=== PATIENT | female | born 1995 | race Caucasian/White ===

== ENCOUNTER → 2017-11-08 08:53 | Outpatient (CLI) | payer BC, SELFPAY ==
[2017-11-08 10:06] LABS: Internal QC Validated? YES +Cl - CLEAR BKGD
[2017-11-08 10:09] LABS: Pregnancy, Urine Negative Negative
== END ==
PROVIDERS: Family Provider Internal Medicine Adolescent Medicine; PCP Internal Medicine Adolescent Medicine; Visit Provider Physician Assistant
DX: L70.0 Acne vulgaris (principal); Z79.899 Other long term (current) drug therapy
CPT/HCPCS: 81025

== ENCOUNTER → 2017-12-23 08:14 | Outpatient (CLI) | payer BC, SELFPAY ==
[2017-12-23 10:12] LABS: Internal QC Validated? YES +Cl - CLEAR BKGD; Pregnancy, Urine Negative Negative
== END ==
PROVIDERS: Family Provider Internal Medicine Adolescent Medicine; PCP Internal Medicine Adolescent Medicine; Referring Provider Dermatology Pediatric Dermatology; Visit Provider Dermatology Pediatric Dermatology
DX: L70.0 Acne vulgaris (principal)
CPT/HCPCS: 81025

== ENCOUNTER → 2018-01-24 08:13 | Outpatient (CLI) | payer BC, SELFPAY ==
[2018-01-24 10:03] LABS: Internal QC Validated? YES +Cl - CLEAR BKGD; Pregnancy, Urine Negative Negative
[2018-01-24 10:14] LABS: Basophil# 0.01 X10^3/uL; Basophil% 0.2 % (0-1); Eosinophil# 0.12 X10^3/uL; Eosinophils% 2.8 % (0-5); Hemoglobin 13.8 g/dl (12.0-15.0); Lymphocyte % 37.7 % (19-41); Mean Corp Hgb Conc 32.9 g/gl (32-36); Mean Corpuscular Volume 91.3 fL (81-99); Mean Platelet Vol. 11.3 fl (6.2-12.0); Monocyte# 0.46 X10^3/uL; Monocyte% 10.8 % (0-10); Neutrophil # 2.04 X10^3/uL (2.7-7.7); Neutrophil % 48.3 % (47-70); Platelet Count 205 K/mm3 (150-450); RBC Distribution Width CV 12.5 % (11.6-14.6); RBC Distribution Width SD 40.9 fl (35.1-43.9); White Blood Count 4.2 K/mm3 (4.4-11.0)
[2018-01-24 10:15] LABS: POSITIVE COUNT NO; POSITIVE DIFFERENTIAL NO; POSITIVE MORPHOLOGY NO
[2018-01-24 11:00] LABS: ALB/GLOB Ratio 1.1 RATIO (0.9-2.4); AST(SGOT) 20 U/L (15-37); Alanine Aminotransfer ALT/SGPT 23 U/L (13-56); Albumin, Serum 3.9 g/dL (3.2-5.0); Alkaline Phosphatase 71 U/L (45-117); Anion Gap 6 (5-15); BUN 12 mg/dL (7-18); BUN/Creat Ratio 11.5 RATIO (10-20); Calcium,Total 9.2 mg/dL (8.5-10.1); Chloride 106 mmol/L (98-107); Cholesterol 207 mg/dL (200); Creatinine, Serum 1.04 mg/dL (0.55-1.02); EST Glomerular Filtration Rate 71 mL/min (>60); Est Glom Filt Rate - Afr Amer 86 mL/min (>60); Globulin 3.7 g/dL (2.2-4.2); Glucose 88 mg/dL (74-106); High Density Lipoprotein 49 mg/dL; Potassium 4.3 mmol/L (3.5-5.1); Protein, Total 7.6 g/dL (6.4-8.2); Sodium Level 138 mmol/L (136-145); Triglycerides 130 mg/dL; Very Low Density Lipoprotein 26 mg/dL (5-40)
--- OUTSIDE RECORDS SUMMARY | 2018-03-19 08:11 | XMS RPT_ITS ---
:1995 Author Organization OH[facility] Care Team Providers Name Role Phone Kiera Hughes PA-C Attending Unavailable Kiera Hughes PA-C Referring Unavailable Georgiana, Ciara Primary Care Unavailable Skylar Kraft Attending Unavailable Skylar Kraft Referring Unavailable Charlesis, Ciara Primary Care Unavailable Kiera Hughes PA-C Attending Unavailable Kiera Hughes PA-C Referring Unavailable Kendis, Ciara Primary Care Unavailable BERTIN GIPSON (FEL) Referring Unavailable LUANN ESCALANTE Attending Unavailable Balaji Joshi Attending Unavailable Skylar Kraft Attending Unavailable PROBLEMS PROBLEMS DATE TYPE CONDITION / ATTENDING STATUS SOURCE CODE 12/23/2017 Unknown L70.0 - Acne Skylar Kraft Active [facility] L70.0(ICD-10) Hospital Repository 11/08/2017 Unknown Z79.899 - Other Kiera Hughes PA-C Active [facility] (current[facility] drug Hospital therapy / Repository Z79.899(ICD-10) 05/12/2017 Admitting Unknown / Balaji Joshi Active [facility] Medical diagnosis UNK(Unknown) [facility] Repository 11/23/2014 Active Low back pain / NA Active [facility] M54.5(ICD-10) [facility] [place] Repository PROCEDURES PROCEDURES No Procedure Records FoundRESULTS RESULTS ,URINE Collected: 01/24/2018 Status: F Source: [place] [facility] TYPE CODE TESTS RESULT OUT OF REFERENCE UNITS RANGE LAB L400.8000 Negative Normal HCGUQUAL Negative Result Comment: Very dilute urine specimens, as indicated by a low specific gravity, may not contain apprenticeship training representative levels of hCG. If is still suspected, a first morning urine specimen should be collected 48 hours later and tested. Performed By: #### L400.7600 #### [facility] [address] [place], [address] CBC W/DIFF, AUTOMATED Collected: 01/24/2018 Status: F Source: [place] 8:[facility] AM [facility] TYPE CODE TESTS RESULT OUT OF RANGE REFERENCE UNITS LAB L100.1000 4.4-11.0 K/mm3 Low WBC 4.2 LAB L100.1200 4.2-5.4 M/mm3 Normal RBC 4.60 LAB L100.1300 12.0-15.0 g/dl Normal HGB 13.8 LAB L100.1400 37-47 % Normal HCT 42.0 LAB L100.1500 81-99 fL Normal MCV 91.3 LAB L100.1600 27.0-32.0 pg Normal MCH 30.0 LAB L100.1700 32-36 g/gl Normal MCHC 32.9 LAB L100.1810 11.6-14.6 % Normal RDW CV 12.5 LAB L100.1820 35.1-43.9 fl Normal RDW SD 40.9 LAB L100.1900 150-450 K/mm3 Normal PLT 205 LAB L100.2000 6.2-12.0 fl Normal MPV 11.3 LAB L100.2100 47-70 % Normal NEUT% 48.3 LAB L100.2200 19-41 % Normal LY% 37.7 LAB L100.2300 0-10 % High MONO% 10.8 LAB L100.2400 0-5 % Normal EO% 2.8 LAB L100.2500 0-1 % Normal BASO% 0.2 LAB L100.2550 0.0-0.9 % Normal IM GRAN % 0.200 Result Comment: IG% - Immature Granulocytes (promyelocytes, myelocytes and metamyelocytes) > 1% indicates that a LEFT SHIFT is Present. LAB L100.2620 2.0-7.7 X10 3/uL Normal Absolute Neut 2.0 LAB L100.2720 0.83-4.51 X10 3/ul Normal Absolute Lymph 1.60 Performed By: #### L100.0100 #### [facility] [address] [place], [address] COMPREHENSIVE METABOLIC Collected: 01/24/2018 Status: F Source: [facility] 8:25 AM [facility] [place] TYPE CODE TESTS RESULT OUT OF RANGE REFERENCE UNITS LAB L501.0100 74-106 mg/dL Normal GLU 88 Result Comment: Please note revised GLUCOSE reference range effective 2017. LAB L501.1000 7-18 mg/dL Normal BUN 12 LAB L501.1100 0.55-1.02 mg/dL High CREAT,SERUM 1.04 Result Comment: The validity of the calculated GFR AND GFRAA in patients over 70 years has not been determined. Clinical correlation is essential. LAB L501.1110 >60 mL/min Normal EST GFR 71 Result Comment: Non- GFR Calc LAB L501.1115 >60 mL/min Normal EST GFR - AA 86 Result Comment: GFR Calc LAB L501.1300 10-20 RATIO Normal BUN/CRE 11.5 LAB L501.1500 6.4-8.2 g/dL T Normal PROT 7.6 LAB L501.1800 3.2-5.0 g/dL Normal ALB 3.9 LAB L501.1950 2.2-4.2 g/dL Normal GLOB 3.7 LAB L501.2000 0.9-2.4 RATIO Normal A/G 1.1 LAB L501.2200 8.5-10.1 mg/dL CA Normal 9.2 LAB L501.4100 15-37 U/L Normal AST 20 LAB L501.4305 45-117 U/L Normal ALK P 71 LAB L501.4405 13-56 U/L Normal ALT 23 LAB L501.4600 0.20-1.00 mg/dL T Normal BILI 0.60 LAB L501.5300 136-145 mmol/L NA Normal 138 LAB L501.5600 3.5-5.1 mmol/L K Normal 4.3 LAB L501.5900 98-107 mmol/L CL Normal 106 LAB L501.6100 21.0-32.0 mmol/L Normal CO2 26.0 LAB L501.6200 5-15 Normal GAP 6 Performed By: #### L500.4050, L500.4100 #### [facility] [address] [place], [place], [address] LIPID PROFILE Collected: 01/24/2018 Status: F Source: [place] 8:25 AM [facility] TYPE CODE TESTS RESULT OUT OF RANGE REFERENCE UNITS LAB L501.4900 200 mg/dL High CHOL 207 Result Comment: <200 mg/dL Desirable 200-240 mg/dL Borderline >240 mg/dL High Risk LAB L501.5000 mg/dL Normal TRIG 130 Result Comment: The drugs N-Acetylcysteine and Metamizole may falsely depress this assay. Serum Triglycerides Reference Interval Normal <150 mg/dL Borderline high 150 - 199 mg/dL High 200 - 499 mg/dL Very High > or = 500 mg/dL LAB L501.6400 mg/dL Normal HDL 49 Result Comment: The drugs N-Acetylcysteine and Metamizole may falsely depress this assay. Reference Range HDL <40 mg/dL Low HDL Cholesterol HDL >or= 60 mg/dL High HDL Cholesterol LAB L501.6500 0-130 mg/dL High LDL 132 LAB L501.6600 5-40 mg/dL Normal VLDL 26 Performed By: #### L500.4050, L500.4100 #### [facility] [address] [place], [place], [id number] ,URINE Collected: 12/23/2017 Status: F Source: [place] 8:21 AM [facility] TYPE CODE TESTS RESULT OUT OF REFERENCE UNITS RANGE LAB L400.8000 Negative Normal HCGUQUAL Negative Result Comment: Very dilute urine specimens, as indicated by a low specific gravity, may not contain apprenticeship training representative levels of hCG. If is still suspected, a first morning urine specimen should be collected 48 hours later and tested. Performed By: #### L400.7600 #### [facility] [address] [place], [place], [id number] ,URINE Collected: 11/08/2017 Status: F Source: [place] 9:05 AM [facility] TYPE CODE TESTS RESULT OUT OF REFERENCE UNITS RANGE LAB L400.8000 Negative Normal HCGUQUAL Negative Result Comment: Very dilute urine specimens, as indicated by a low specific gravity, may not contain apprenticeship training representative levels of hCG. If is still suspected, a first morning urine specimen should be collected 48 hours later and tested. Performed By: #### L400.7600 #### [facility] [address] [place], [address] URINE Collected: 10/02/2017 Status: F Source: [facility] 2:23 PM [facility] REPOSITORY TYPE CODE TESTS RESULT OUT OF RANGE REFERENCE UNITS LAB L600.86842 NEGATIVE Normal UR NEGATIVE HCG QUAL LAB L600.76098 1.005-1.030 Normal UR 1.025 SPEC GRAV Performed By: #### L600.45734 #### [facility] [address], [place] [address] PH# [phone] CBC W/DIFF Collected: 05/12/2017 Status: F Source: [facility] 8:00 AM [facility] REPOSITORY TYPE CODE TESTS RESULT OUT OF REFERENCE UNITS RANGE LAB L200.12201 4.5-11.0 K/CU MM WBC Normal 6.1 LAB L200.25360 3.90-5.30 M/CU MM RBC Normal 4.18 LAB L200.80191 11.5-15.5 G/DL HGB Normal 12.2 LAB L200.54337 35.0-47.0 % HCT Normal 38.9 LAB L200.68366 80.0-99.0 fl MCV Normal 93.1 LAB L200.37947 32.0-36.0 GM/DL Low MCHC 31.4 LAB L200.35314 11-14.5 RDW Normal 12.4 LAB L200.92356 9.4-12.4 MPV Normal 11.7 LAB L200.29205 150-450 K/CU MM PLT Normal 173 LAB L200.95630 45-75 % NEUTROPHILS Normal % 72.0 LAB L200.52094 0-7 % BAND % Normal 2.0 LAB L200.37858 20-40 % Low LYMPH % 14.0 LAB L200.46111 2-10 % MONOCYTE % Normal 9.0 LAB L200.67543 0-5 % EOSINOPHIL Normal % 2.0 LAB L200.03145 0-2 % BASOPHIL % Normal 1.0 LAB L200.95419 2.0-8.3 K/CU MM NEUTROPHIL Normal ABS 4.39 LAB L200.00050 K/CU MM BAND ABS Normal 0.12 LAB L200.89202 0.9-4.4 K/CU MM Low LYMPH ABS 0.85 LAB L200.12678 0.1-1.1 K/CU MM MONO ABS Normal 0.55 LAB L200.21884 0-0.5 K/CU MM EOS ABS Normal 0.12 LAB L200.74974 0-0.2 K/CU MM BASO ABS Normal 0.06 LAB L200.29606 Less than 1 % NRBC Normal 0.0 LAB L200.93803 HYPO Normal 1+ LAB L200.46252 POIK Normal 1+ LAB L200.35247 PLT EST Normal ADEQUATE Performed By: #### L200.34368, L200.16001 #### [facility] [address] [place] [address] WSR/MOD Collected: 05/12/2017 Status: F Source: [facility] 8:00 AM [facility] REPOSITORY TYPE CODE TESTS RESULT OUT OF RANGE REFERENCE UNITS LAB L200.67728 0-20 MM/HR Normal WSR/MOD 13 Performed By: #### L200.85147, L200.99119 #### [facility] [address] [place] [address] CMP Collected: 05/12/2017 Status: F Source: [facility] 8:00 AM [facility] REPOSITORY TYPE CODE TESTS RESULT OUT OF RANGE REFERENCE UNITS LAB L500.27029 136-145 MMOL/L Normal NA 142 LAB L500.01017 3.5-5.1 MMOL/L Normal K 4.2 LAB L500.81116 98-107 MMOL/L Normal CL 105 LAB L500.61202 21-32 MMOL/L Normal CO2 27 LAB L500.63640 5-16 MMOL/L Normal AGAP 10 LAB L500.91383 70-100 MG/DL Normal GLU 86 Result Comment: 70-100- Normal Fasting; 100-125 Impaired Fasting; greater than 126 on more than one result- Diabetes. ADA guidelines. Results may be falsely elevated after the administration of Sulfapyridine. Results may be falsely depressed after the administration of Sulfasalazine. LAB L500.08894 7-26 MG/DL Normal BUN 14 LAB L500.25137 0.510-0.950 MG/DL Normal CREAT 0.858 Result Comment: Patients receiving either N-Acetylcysteine (NAC) or Metamizole prior to venipuncture, may have falsely depressed results. LAB L500.70545 15-24 Normal BUN/CREA 16 LAB L500.72534 6.0-8.5 GM/DL Normal TP 6.6 LAB L500.80284 3.2-5.0 GM/DL Normal ALBUMIN 3.4 LAB L500.81917 2.2-4.2 GM/DL Normal GLOBULIN 3.2 LAB L500.62636 0.8-2.0 Normal A/G RATIO 1.1 LAB L500.72240 8.5-10.1 MG/DL Normal CALCIUM TOTAL 8.5 LAB L500.89100 0.2-1.0 MG/DL Normal BILI TOTAL 0.3 LAB L500.82876 8-34 U/L Normal SGOT (AST) 14 Result Comment: RESULTS MAY BE FALSELY DEPRESSED AFTER THE ADMINISTRATION OF SULFASALAZINE AND/OR SULFAPYRIDINE. LAB L500.96048 13-61 IU/L Normal SGPT (ALT) 17 Result Comment: RESULTS MAY BE FALSELY DEPRESSED AFTER THE ADMINISTRATION OF SULFASALAZINE AND/OR SULFAPYRIDINE. LAB L500.40759 45-117 U/L Normal ALK PHOS 60 Performed By: #### L500.51985, L500.30758, L500.94424, L500.74547, L500.17584 #### [facility] [place] [address] GFR EST Collected: 05/12/2017 Status: F Source: [facility] 8:00 AM [facility] REPOSITORY TYPE CODE TESTS RESULT OUT OF RANGE REFERENCE UNITS LAB L500.38859 ML/MIN Normal IF non-AFR Greater than AMER 60 LAB L500.23407 ML/MIN Normal IF Greater than AMER 60 Performed By: #### L500.39050, L500.52762, L500.54393, L500.93009, L500.10882 #### [facility] [place] [address] EL Collected: 05/12/2017 Status: F Source: [facility] 8:00 AM [facility] REPOSITORY TYPE CODE TESTS RESULT OUT OF RANGE REFERENCE UNITS LAB L500.56147 25-115 U/L Normal EL 50 Performed By: #### L500.66404, L500.77392, L500.57672, L500.55165, L500.21074 #### [facility] [address] [place] [address] LIPASE Collected: 05/12/2017 Status: F Source: [facility] 8:00 AM [facility] REPOSITORY TYPE CODE TESTS RESULT OUT OF RANGE REFERENCE UNITS LAB L500.61935 73-393 U/L Normal LIPASE 175 Performed By: #### L500.30249, L500.01524, L500.12008, L500.75452, L500.45801 #### [facility] [address] [place] [address] HCG Collected: 05/12/2017 Status: F Source: [facility] 8:00 AM [facility] REPOSITORY TYPE CODE TESTS RESULT OUT OF RANGE REFERENCE UNITS LAB L500.68582 NEGATIVE Normal HCG SER NEGATIVE RESULT Performed By: #### L500.08515, L500.41186, L500.55448, L500.63056, L500.62481 #### [facility] [address] [place] [address] CMV IGG AB Collected: 05/12/2017 Status: F Source: [facility] 8:00 AM [facility] REPOSITORY TYPE CODE TESTS RESULT OUT OF RANGE REFERENCE UNITS LAB L705.07880 0.00-0.59 U/mL Normal CMV IGG <0.60 AB Result Comment: Negative <0.60 Equivocal 0.60 - 0.69 Positive >0.69 Performed By: #### L705.15139, L705.53052, L750.94777, L750.27663 #### [facility] [address] [place] [address] # [phone] CMV IGM AB Collected: 05/12/2017 Status: F Source: [facility] 8:00 AM [facility] REPOSITORY TYPE CODE TESTS RESULT OUT OF RANGE REFERENCE UNITS LAB L705.35633 0.0-29.9 AU/mL Normal CMV IGM <30.0 AB Result Comment: Negative <30.0 Equivocal 30.0 - 34.9 Positive >34.9 A positive result is generally indicative of acute infection, reactivation or persistent IgM production. Performed By: #### L705.48924, L705.79770, L750.03858, L750.72396 #### [facility] [address] # [phone] EBV VCA IGM AB Collected: 05/12/2017 Status: F Source: [facility] 8:00 AM [facility] REPOSITORY TYPE CODE TESTS RESULT OUT OF RANGE REFERENCE UNITS LAB L750.39470 0.0-35.9 U/mL Normal EBV VCA <36.0 IGM AB Result Comment: Negative <36.0 Equivocal 36.0 - 43.9 Positive >43.9 Performed At: [address] [id number] Ryan Abebe PhD [id number] Performed By: #### L705.35141, L705.00700, L750.03147, L750.97126 #### [facility] [address] # [phone] EBV VCA IGG AB Collected: 05/12/2017 Status: F Source: [facility] 8:00 AM [facility] REPOSITORY TYPE CODE TESTS RESULT OUT OF RANGE REFERENCE UNITS LAB L750.91248 0.0-17.9 U/mL Normal EBV VCA < 18.0 IGG AB Result Comment: Negative <18.0 Equivocal 18.0 - 21.9 Positive >21.9 Performed By: #### L705.57771, L705.98673, L750.48781, L750.90374 #### [facility] [address] [place] [address] # [phone] PROGRESS Observed: 02/25/2017 Status: COMPLETED Source: [place] 2:51 PM [facility] REPOSITORY HNO ID: [id number] Author: Jensen Castillo (RtRosaline Reyes Service: Radiology Author Type: Energy Derivatives Trader Type: Progress Notes Filed: 02/25/2017 2:51 PM Note Text: Radiology Service Progress Note PATIENT NAME: Ewa Weller DATE OF SERVICE: February 25, 2017 TIME: 2:51 PM PATIENT IDENTITY VERIFICATION COMPLETED USING TWO (2) METHODS: Patient confirmed name verbally and Date of . PATIENT GENDER DATA: Female. status: : No status: NO. PATIENT RELEVANT IMPLANT DATA REVIEWED: Not Applicable RADIOLOGY DEPARTMENT: General X-ray: Exam(s) Completed: Spine X-Ray(s): Lumbar AP / LAT / L5-S1 / OBL PERIPHERAL IV DATA: Not applicable SIGNED BY: RT Jade February 25, 2017 2:51 PM XR LUMBAR PARS 4V Observed: 02/25/2017 Status: F Source: [place] AP/LAT/OBL X2 2:51 PM [facility] REPOSITORY * * *Final Report* * * DATE OF EXAM: Feb 25 2017 2:51PM JIX [id number] - XR LUMBAR PARS 4V AP/LAT/OBL X2 / PROCEDURE REASON: Low back pain * * * * Physician Interpretation * * * * EXAMINATION: XR LUMBAR PARS 4V AP/LAT/OBL X2 HISTORY: lower back pain. no trauma Low back pain . TECHNIQUE: XR LUMBAR PARS 4V AP/LAT/OBL X2 Laterality: NOT APPLICABLE Number of different views (projections): 5 M: XB_1 COMPARISON: 11/23/2014 RESULT: Counting reference: Lumbosacral junction. For the purposes of this report, L5-S1 is considered the last lumbar type disc space and L4-L5 is considered the level of the iliac crest. Mild retrolisthesis of L5 on S1. Minimal endplate hypertrophic changes. Normal disc and vertebral body heights. Minimal degenerative facet changes. No spondylolysis identified. Sacroiliac joints are maintained. IMPRESSION: No acute change of the lumbar spine. Spoilage Worker: COURTNEY Transcribe Date/Time: Feb 25 2017 2:52P Dictated by : FELA XIE MD This examination was interpreted and the report reviewed and electronically signed by: FELA XIE MD on Feb 25 2017 2:54PM EST [id number] HISTORY PHYSICAL Observed: 02/25/2017 Status: COMPLETED Source: [place] 1:48 PM [facility] REPOSITORY HNO ID: [id number] Author: Luann Escalante Service: (none) Author Type: Physician Type: HANDP Filed: 02/25/2017 3:14 PM Note Text: SPINE SURGERY NEW PATIENT PCP: Ciara Stoner MD REFERRING PROVIDER: Self SUBJECTIVE HISTORY OF PRESENT ILLNESS: Ewa Weller is a 21 year old female presenting with mother. CHIEF COMPLAINT: Back pain PRECIPITATING EVENT: None DURATION OF SYMPTOMS: Greater Than 6 Months 21F who presents with a chief complaint of back pain. Ashishs back pain dates back to 3 years ago when she sustained a stress fracture to L5 while playing basketball. She was treated conservatively at the time and obtained relief eventually. Since May 2016 she has begun to experience continued back pain. Initially it extended into her right leg but has since transitioned to exclusively back. Pain is worse with extension, better with flexion. She takes ibuprofen as needed for pain. She has undergone bilateral L5-S1 TFESI and two sets of bilateral SI joint injection and one unilateral right sided SI joint injection with mild pain relief. She has also completed 3 months of PT with limited benefit. She denies any weakness numbness or tingling. Denies bowel or bladder incontinence. PAIN EVALUATION 02/25/2017 Pain Score: 2 Pain Location: Back-Lower Description: Aching Duration Amount of Time: 3 Duration Units: Years Frequency: Continuous Intervention: Medication;Relaxation worst 8/10 Comments: worst 8/10 Pain Radiation: Pain does not radiate Aggravating Factors: Extension Alleviating Factors: Medications Pain Ratio: Pain is limited to her back DERMATOMAL DISTRIBUTION: Not applicable AMBULATORY STATUS: Independent Community Distances FUNCTIONAL STATUS: Participate in strenuous sport, such as swimming, singles tennis, football, basketball, or skiing (7.50 METs) PREVIOUS CONSERVATIVE TREATMENTS: OTC NSAIDS for 3 Months or Greater (Ibuprofen) Physical Therapy: Date(s) June to September 2016 Epidural Blocks: Date(s) August, October and December 2016 PREVIOUS SPINAL SURGERY: None PED RED FLAGS No No-Significant Injury to Spine No-Use of Steroids for Prolonged Duration No-Loss of Bowel/Bladder Control, Genital/Anal Numbness No-Recent Use of Intravenous (IV) Drugs No-Difficulty Keeping Balance when Walking No-Progressive Weakness in Arms/Legs No-History of Any Type of Cancer No-Unable to Find Position of Comfort No-Pain at Night that Disturbs Sleep No-Recent Elevated Temp with Unknown Cause No-Diagnosed with Osteoporosis No-Unintentional Weight Loss or Gain *PED (Patient Entered Data) osteoporosis flag will display for females 55 years or older and males 75 years or older. ACTIVE PROBLEM LIST Mechanical Low Back Pain No past medical history on file. No past surgical history on file. No family history on file. Social History Marital status: Single Spouse name: Years of education: Number of children: Social History Main Topics Smoking status: Never Smoker Smokeless status: Never Used Alcohol use: No ALLERGIES No Known Allergies MEDICATIONS: IBUPROFEN ORAL Take by mouth. REVIEW OF SYSTEMS: PAIN ASSESSMENT: See HPI. GENERAL: Denies fever, chills malaise and weight loss. HEENT: No recent change in vision or hearing. CARDIOVASCULAR: Denies chest pain, history of A-fib, valvular disease, or pacemaker/ICD. RESPIRATORY: Denies SOB, sputum production, and hemoptysis. GI: Denies GI ulcers, inflammatory disease, or liver disease. : Denies change in frequency or urgency, kidney disease, and burning with urination. MUSCULOSKELETAL: Negative for joint pain or swelling, back pain or muscle pain. SKIN: Denies rash or itching. PSYCHOLOGICAL: Denies uncontrolled depression or anxiety. NEURO: Denies CVA, seizures, headaches. ENDOCRINE: Denies diabetes, thyroid disease. HEMATOLOGY/LYMPHOLOGY: Denies cancer, bleeding or clotting disorders, anemia,and DVT's. ALLERGIC/IMMUNOLOGICAL: Denies risks for infection, or recent MRSA infections. OBJECTIVE: PHYSICAL EXAM BP 119/55 Pulse 60 Resp 18 Ht 165.1 cm (5' 5) Wt 63.5 kg (140 lb) BMI 23.3 kg/m2 GENERAL APPEARANCE: Well nourished, well developed, and no apparent distress. NEURO PSYCH: Patient oriented to person, place, and time. Mood pleasant. Benign affect. CARDIOVASCULAR: Palpable pulses. No edema noted. No varicosities. SKIN: Head, neck, trunk, and extremities dry, intact and without lesions. LYMPHATICS: No palpable nodes in cervical or axillae areas. Groin exam deferred. MUSCULOSKELETAL VISUAL INSPECTION CERVICAL: WNL THORACIC: WNL LUMBAR: WNL PALPATION: SPINOUS PROCESS: No pain. PARASPINALS: Pain with deep palpation in low lumbar paraspinal area MUSCLE BULK: Normal and symmetrical in the upper AND lower extremities. MUSCLE TONE: Normal. MOTOR: 5/5 in all muscle groups. SENSORY: Normal sensory exam GAIT: Normal. REFLEXES: +2 to bilateral U/L extremities. PROPRIOCEPTION: Normal. LONG TRACT SIGNS: No clonus. No Hoffmans. STRAIGHT LEG TEST: Ipsilateral: Negative. Contralateral: Negative. L'HERMITTES SIGN: Negative on the right. Negative on the left. SPURLING'S TEST: Negative on the right. Negative on the left. NEURO TESTS: None DATA REVIEW Imaging and outside records reviewed ASSESSMENT/PLAN Back pain; suspect L5-S1 facet arthropathy; less likely to be pars ? Referral to pain clinic for facet blocks at L5-S1 bilaterally ? Continue PT ? Standing AP, lateral oblique lumbar xrays to evaluate for pars defects Dayanara Gipson MD. Spine Fellow Luann Escalante MD. Staff Surgeon CNOV Observed: 02/25/2017 Status: COMPLETED Source: [place] 1:00 PM [facility] REPOSITORY Office Visit (SPNSMN) EWA WELLER ([id number]) 1995 F Date Time Provider Department 02/25/17 1:00 PM LUANN ESCALANTE SPNSMN During your visit today, we recorded the following information about you: Pulse Respiration Blood pressure Weight 60/minute 18/minute 119/55 63.5 kg Height 1.651 m Luann Escalante MD 02/25/2017 3:14 PM Signed SPINE SURGERY NEW PATIENT PCP: Ciara Stoner MD REFERRING PROVIDER: Self SUBJECTIVE HISTORY OF PRESENT ILLNESS: Ewa Weller is a 21 year old female presenting with mother. CHIEF COMPLAINT: Back pain PRECIPITATING EVENT: None DURATION OF SYMPTOMS: Greater Than 6 Months 21F who presents with a chief complaint of back pain. Ewa's back pain dates back to 3 years ago when she sustained a ANDquot;stress fractureANDquot; to L5 while playing basketball. She was treated conservatively at the time and obtained relief eventually. Since May 2016 she has begun to experience continued back pain. Initially it extended into her right leg but has since transitioned to exclusively back. Pain is worse with extension, better with flexion. She takes ibuprofen as needed for pain. She has undergone bilateral L5-S1 TFESI and two sets of bilateral SI joint injection and one unilateral right sided SI joint injection with mild pain relief. She has also completed 3 months of PT with limited benefit. She denies any weakness numbness or tingling. Denies bowel or bladder incontinence. PAIN EVALUATION 02/25/2017 Pain Score: 2 Pain Location: Back-Lower Description: Aching Duration Amount of Time: 3 Duration Units: Years Frequency: Continuous Intervention: Medication;Relaxation worst 8/10 Comments: worst 8/10 Pain Radiation: Pain does not radiate Aggravating Factors: Extension Alleviating Factors: Medications Pain Ratio: Pain is limited to her back DERMATOMAL DISTRIBUTION: Not applicable AMBULATORY STATUS: Independent Community Distances FUNCTIONAL STATUS: Participate in strenuous sport, such as swimming, singles tennis, football, basketball, or skiing (7.50 METs) PREVIOUS CONSERVATIVE TREATMENTS: OTC NSAIDS for 3 Months or Greater (Ibuprofen) Physical Therapy: Date(s) June to September 2016 Epidural Blocks: Date(s) August, October and December 2016 PREVIOUS SPINAL SURGERY: None PED RED FLAGS No No-Significant Injury to Spine No-Use of Steroids for Prolonged Duration No-Loss of Bowel/Bladder Control, Genital/Anal Numbness No-Recent Use of Intravenous (IV) Drugs No-Difficulty Keeping Balance when Walking No-Progressive Weakness in Arms/Legs No-History of Any Type of Cancer No-Unable to Find Position of Comfort No-Pain at Night that Disturbs Sleep No-Recent Elevated Temp with Unknown Cause No-Diagnosed with Osteoporosis No-Unintentional Weight Loss or Gain *PED (Patient Entered Data) osteoporosis flag will display for females 55 years or older and males 75 years or older. ACTIVE PROBLEM LIST Mechanical Low Back Pain No past medical history on file. No past surgical history on file. No family history on file. Social History Marital status: Single Spouse name: Years of education: Number of children: Social History Main Topics Smoking status: Never Smoker Smokeless status: Never Used Alcohol use: No ALLERGIES No Known Allergies MEDICATIONS: IBUPROFEN ORAL Take by mouth. REVIEW OF SYSTEMS: PAIN ASSESSMENT: See HPI. GENERAL: Denies fever, chills malaise and weight loss. HEENT: No recent change in vision or hearing. CARDIOVASCULAR: Denies chest pain, history of A-fib, valvular disease, or pacemaker/ICD. RESPIRATORY: Denies SOB, sputum production, and hemoptysis. GI: Denies GI ulcers, inflammatory disease, or liver disease. : Denies change in frequency or urgency, kidney disease, and burning with urination. MUSCULOSKELETAL: Negative for joint pain or swelling, back pain or muscle pain. SKIN: Denies rash or itching. PSYCHOLOGICAL: Denies uncontrolled depression or anxiety. NEURO: Denies CVA, seizures, headaches. ENDOCRINE: Denies diabetes, thyroid disease. HEMATOLOGY/LYMPHOLOGY: Denies cancer, bleeding or clotting disorders, anemia,and DVT's. ALLERGIC/IMMUNOLOGICAL: Denies risks for infection, or recent MRSA infections. OBJECTIVE: PHYSICAL EXAM BP 119/55 Pulse 60 Resp 18 Ht 165.1 cm (5' 5ANDquot;) Wt 63.5 kg (140 lb) BMI 23.3 kg/m2 GENERAL APPEARANCE: Well nourished, well developed, and no apparent distress. NEURO PSYCH: Patient oriented to person, place, and time. Mood pleasant. Benign affect. CARDIOVASCULAR: Palpable pulses. No edema noted. No varicosities. SKIN: Head, neck, trunk, and extremities dry, intact and without lesions. LYMPHATICS: No palpable nodes in cervical or axillae areas. Groin exam deferred. MUSCULOSKELETAL VISUAL INSPECTION CERVICAL: WNL THORACIC: WNL LUMBAR: WNL PALPATION: SPINOUS PROCESS: No pain. PARASPINALS: Pain with deep palpation in low lumbar paraspinal area MUSCLE BULK: Normal and symmetrical in the upper ANDamp; lower extremities. MUSCLE TONE: Normal. MOTOR: 5/5 in all muscle groups. SENSORY: Normal sensory exam GAIT: Normal. REFLEXES: +2 to bilateral U/L extremities. PROPRIOCEPTION: Normal. LONG TRACT SIGNS: No clonus. No Hoffmans. STRAIGHT LEG TEST: Ipsilateral: Negative. Contralateral: Negative. L'HERMITTES SIGN: Negative on the right. Negative on the left. SPURLING'S TEST: Negative on the right. Negative on the left. NEURO TESTS: None DATA REVIEW Imaging and outside records reviewed ASSESSMENT/PLAN Back pain; suspect L5-S1 facet arthropathy; less likely to be pars ? Referral to pain clinic for facet blocks at L5-S1 bilaterally ? Continue PT ? Standing AP, lateral oblique lumbar xrays to evaluate for pars defects Dayanara Gipson MD. Spine Fellow Luann Escalante MD. Staff Surgeon Referring Provider: SELF [[id number]] Allergies As of Date: 02/25/2017 (No Known Allergies) Date Reviewed: 02/25/2017 Reviewed by: Zoila Cortez - Fully Assessed Reason for Visit: New Patient [172] Primary Visit Diagnosis:Mechanical low back pain [M54.5] Order(s):XR LUMBAR PARS DEFECT 4V AP/LAT/BOTH OBL [7759105] Order #: [id number] FUTURE CONSULT TO PAIN MGT ANESTHESIA [19990530] Order #: [id number]: 1 CONSULT TO PAIN MGT ANESTHESIA [[id number]] Order #: [id number]: 1 Prescriptions as of 02/25/2017 Sig: IBUPROFEN ORAL Take by mouth. Problem List As Of Date 02/25/2017 Noted Resolved Mechanical low back pain [M54.5] INVALID FOR* Medications Discontinued During This Encounter ketorolac (TORADOL) 10 mg tablet 20 t* 0 11/23/2014 02/25/2017 Route: ORAL Sig: Take 1 tablet by mouth four times daily. Disc: Reason for discontinue is not on file. naproxen (NAPROSYN) 375 mg tablet 60 t* 2 11/23/2014 02/25/2017 Route: ORAL Sig: Take 1 tablet by mouth twice daily with meals. DO NOT START UNTIL AFTER TORADOL Rx COMPLETE Disc: Reason for discontinue is not on file. Encounter Status:Closed by LUANN ESCALANTE MD on 02/25/17 ALLERGIES ALLERGIES DATE TYPE / CODE NAME / CODE REACTION SEVERITY SOURCE Drug NO KNOWN [facility] Class/85619 ALLERGIES [place] 1003(SNOMED Repository CT) ENCOUNTERS ENCOUNTERS ADMIT/DISCHARGE ACCOUNT ADMITTING ENCOUNTER LOCATION SOURCE NUMBER CLASS 01/24/2018 [id number] [facility] ing:MTLAB Repository 12/23/2017 [id number] [facility] ing:MTLAB Repository 11/08/2017 [id number] Ambulatory Kelly Kelly [facility] ing:MTLAB Repository 10/02/2017 [id number] Ambulatory [facility] g:H.NL Repository 05/12/2017 [id number] [facility] g:H.ELS Repository 02/25/2017/02/25/19 [id number] Ambulatory [address] Repository 02/25/2017/02/27/19 [id number] Ambulatory [address] Repository PAYERS PAYERS ENCOUNTER GUARANTOR PAYER SUBSCRIBER SOURCE 01/24/2018 EWA Hamzah Primary EMELIA E Kelly [id number] Insurance:ANTHEMPolic [facility]: [id number] [id number]ository [place] [address]Odn: Date:5356-82-24VV [address]QOFKV, [place] () [address]LJ: 01/24/2018 Secondary NOT GIVENUNK Kelly Insurance:SELF PAY [facility] Number: Effective Repository Date:2018-01-24 12/23/2017 KATIE Goodson Primary EMELIA E Cary [id number] Insurance:ANTHEMPolic [facility]LYERDOB[facility] [address] y Number: [id number], [id number] Repository [place] [address]Drz: Date:1343-42-54LV [address]QJGKU[address], [place] [facility]) [address]AP: 12/23/2017 Secondary NOT GIVENUNK Kelly Insurance:SELF PAY [facility] Number: Effective Repository Date:2017-12-23 11/08/2017 KATIE Hamzah Primary EMELIA E Cary [id number] Insurance:ANTHEMPolic BLYERDOB: [facility] Number: [id number], [id number] Repository [place] [address]Bfv: Date:1090-08-31XK [address]KWBATTKTWAN ELIZABETH [facility]) [address]DX: 11/08/2017 Secondary NOT GIVENUNK Kelly Insurance:SELF PAY [facility] Number: Effective Repository Date:2017-11-08 10/02/2017 EWA Goodson [facility]2792 Insurance:[facility] Number: Repository CHARISSE CORTES [id number] [place] [id number]: Date:3328-13-98NR [address]YNLUZYBTWAN ELIZABETH () [address]ZG: 05/12/2017 EWA Goodson [facility]2792 Insurance:[facility] Number: Repository CHARISSE CORTES [id number] [place] [id number]: Date:2809-78-55EJ [address] () [address]CE:
== END ==
PROVIDERS: Family Provider Internal Medicine Adolescent Medicine; PCP Internal Medicine Adolescent Medicine; Referring Provider Physician Assistant; Visit Provider Physician Assistant
DX: L70.0 Acne vulgaris (principal); L85.3 Xerosis cutis; L55.0 Sunburn of first degree; Z79.899 Other long term (current) drug therapy
CPT/HCPCS: 36415; 80053; 80061; 81025; 85025

== ENCOUNTER → 2018-02-28 08:05 | Outpatient (CLI) | payer BC, SELFPAY ==
[2018-02-28 10:14] LABS: Internal QC Validated? YES +Cl - CLEAR BKGD
[2018-02-28 10:18] LABS: Pregnancy, Urine Negative Negative
== END ==
PROVIDERS: Family Provider Internal Medicine Adolescent Medicine; PCP Internal Medicine Adolescent Medicine; Referring Provider Physician Assistant; Visit Provider Physician Assistant
DX: L70.0 Acne vulgaris (principal); Z79.899 Other long term (current) drug therapy
CPT/HCPCS: 81025

== ENCOUNTER → 2018-04-11 08:07 | Outpatient (CLI) | payer BC, SELFPAY ==
[2018-04-11 10:25] LABS: Internal QC Validated? YES +Cl - CLEAR BKGD; Pregnancy, Urine Negative Negative
== END ==
PROVIDERS: Family Provider Internal Medicine Adolescent Medicine; PCP Internal Medicine Adolescent Medicine; Referring Provider Physician Assistant; Visit Provider Physician Assistant
DX: L70.0 Acne vulgaris (principal); Z79.899 Other long term (current) drug therapy
CPT/HCPCS: 81025

== ENCOUNTER → 2018-06-06 09:27 | Outpatient (CLI) | payer BC, SELFPAY ==
[2018-06-06 12:29] LABS: Internal QC Validated? YES +Cl - CLEAR BKGD; Pregnancy, Urine Negative Negative
== END ==
PROVIDERS: Family Provider Internal Medicine Adolescent Medicine; PCP Internal Medicine Adolescent Medicine; Referring Provider Dermatology Pediatric Dermatology; Visit Provider Dermatology Pediatric Dermatology
DX: L70.0 Acne vulgaris (principal)
CPT/HCPCS: 81025